=== PATIENT | male | born 1985 | race American Indian/Alaskan Native ===

== ENCOUNTER 2019-05-17 08:19 | Emergency (ER) | payer SELFPAY ==
[2019-05-17 08:28] VITALS: BP 119/68
[2019-05-17] MEDS ORDERED: CYCLOBENZAPRINE 10 MG TAB PO ONE (09:07)
[2019-05-17] MEDS ORDERED: IBUPROFEN 800 MG TAB PO ONE (09:07)
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
== END 2019-05-17 09:32 | disposition home or self-care (01) ==
LOC: ED 08:19
DX: S39.012A Strain of muscle, fascia and tendon of lower back, initial encounter (principal); S83.92XA Sprain of unspecified site of left knee, initial encounter; F17.200 Nicotine dependence, unspecified, uncomplicated; X58.XXXA Exposure to other specified factors, initial encounter; Y93.89 Activity, other specified; Y92.89 Other specified places as the place of occurrence of the external cause; Y99.8 Other external cause status
CPT/HCPCS: 99282